=== PATIENT | male | born 1955 | race Caucasian/White ===

== ENCOUNTER 2017-11-13 05:20 | Inpatient (IN) | payer MEDICAID ==
[2017-11-13] VITALS (11 sets, daily range): BP systolic 139–154; BP diastolic 78–89; BMI 35.5
[~2017-11-13] VITALS: Ht 175.3 cm; Wt 109.1 kg
--- NOTE | ~2017-11-13 | OP ---
PATIENT NAME: SADIQ SALVADOR MEDICAL RECORD: [id number] :55 LOCATION:D.M2 D.2115 ADMISSION DATE:11/13/17 SURGEON: TREV FUENTES MD DATE OF OPERATION: 11/14/2017 PROCEDURES: 1. Stent placement, iliac, left. 2. TESTING TECH, iliac, left. 3. Aortofemoral runoff. 4. Abdominal aortography. INDICATION: Claudication and peripheral vascular disease. PROCEDURE IN DETAIL: After informed consent was informed with detailed description of risks and benefits as well as alternative therapies, the patient elected to proceed with angiogram and angioplasty. The left femoral area was prepped and draped in normal sterile fashion. Left femoral artery was cannulated via modified Seldinger technique with placement of a 6-Latvian sheath. FINDINGS: Abdominal aortography was performed. The catheter was pulled down for aortofemoral runoff. Abdominal aortography revealed no significant abdominal aortic disease. No dissection or aneurysm formation. RIGHT LEG: A. Iliac: The common internal and external iliacs have mild irregularities, but no flow-limiting stenosis. B. Femoral system: The common superficial and deep femoral have mild irregularities, but no flow-limiting stenosis. C. Popliteal and infrapopliteal vessels are widely patent with good 3-vessel runoff to the foot. LEFT LEG: A. Iliac: The common iliac has no significant stenosis. The external iliac has a 95% stenosis in the proximal aspect. B. Femoral system: The common superficial and deep femoral have mild irregularities, but no flow-limiting stenosis. C. Popliteal and infrapopliteal vessels are patent with good 3-vessel runoff to the foot. TESTING TECH AND STENT OF THE LEFT EXTERNAL ILIAC: Stent and balloon combination used was a Cordis Mihaela 7 x 18, taken to 13 atmospheres. Result was 0% residual stenosis. OVERALL IMPRESSION: Successful TESTING TECH and stent of the left external iliac, going from 95% initial stenosis to 0% residual. TRANSINT:[id number] Voice Confirmation ID: [id number] DOCUMENT ID: [id number] OPERATIVE REPORT [id number] MADELEINESADIQ Estrellita TREV FUENTES MD at 1729 CC: [id number] DICTATION DATE: 11/14/17 1134 TEACHER PRESCHOOL: 11/14/17 1215 ADM IN [place] [id number] [place] [address]
--- NOTE | ~2017-11-13 | OP ---
PATIENT NAME: SADIQ SALVADOR MEDICAL RECORD: [id number] :55 LOCATION:D.M2 D.2115 ADMISSION DATE:11/13/17 SURGEON: TREV FUENTES MD DATE OF OPERATION: 11/14/2017 PROCEDURES: 1. PTCA and stent, LAD. 2. PTCA, LAD diagonal. 3. Selective coronary angiography. INDICATION: Angina and coronary disease. PROCEDURE IN DETAIL: After informed consent was informed with detailed description of risks and benefits as well as alternative therapies, the patient elected to proceed with angiogram and angioplasty. The left femoral area had a preexisting sheath from peripheral intervention. All catheters were exchanged through this sheath. FINDINGS: The left anterior descending has 90% stenosis just after the bifurcation of the LAD and the LAD diagonal. This was addressed with a 2.5 x 18-mm [place] stent. The stent balloon was then directed to the diagonal. There was previously placed stent in the diagonal with 95% in-stent restenosis. This was ballooned with a stent balloon. Result was 0% residual throughout. OVERALL IMPRESSION: Successful PTCA and stent of LAD and diagonal, both going from 90% to 95% initial stenosis to 0% residual. TRANSINT:[id number] Voice Confirmation ID: [id number] DOCUMENT ID: [id number] TREV FUENTES MD at 1729 CC: [id number] DICTATION DATE: 11/14/17 1134 PROFILING MACHINE SET UP OPERATOR TOOL: 11/14/17 1212 ADM IN [place] [address] [place] [address]
--- NOTE | ~2017-11-13 | HEMODYNAMI ---
PATIENT:SADIQ SALVADOR MEDICAL RECORD: [id number] : 55 LOCATION:[facility] [address] [place], [place] [address]T# [id number] ADMISSION DATE: 11/13/17 Generatedon:11/14/201711:31 Patient name: SADIQ SALVADOR Patient #: [id number] SSN: : Date of study: 11/14/2017 Page: Of Hemodynamic Procedure Report Patient Data Patient Demographics Procedure consent was obtained First Name: SADIQ Gender: Male Last Name: MADELEINE : 1955 Middle Initial: Estrellita Age: 61 year(s) Patient #: [id number] Race: Unknown Additional ID: [id number] Contact details Address: [address] [place] [address] State: [place] City: [place] Zip code: [address] Admission Admission Data Admission Date: 11/13/2017 Admission Time: 11:54 Admit Source: Other Room #: .2115 Procedure Procedure Types Cath Procedure Diagnostic Procedure Sedation Charges Moderate Sedation up to 30 minutes PCI Procedure Coronary Stent Coronary Stent Initial PTCA PTCA Additional Peripheral Cath Diagnostic Procedure Administrative Services Assistant Peripheral Procedures Vvxrl-Qbdutia-Qjt-Off Peripheral vascular Intervention Stent Stent Iliac w/plasty Initial Procedure Description Procedure Date Procedure Date: 11/14/2017 Procedure Start Time: 10:59 Procedure End Time: 11:28 Procedure Staff Name Function Wilbur Garcia MD Performing Physician Ally Louis RT Monitor Natalio Miller RT Scrub Fernandez Fu RN Nurse Procedure Data Cath Procedure Fluoroscopy Diagnostic fluoroscopy Total fluoroscopy Time: 7.5 time: 7.5 min min Diagnostic fluoroscopy Total fluoroscopy dose: dose: 1418 mGy 1418 mGy Contrast Material Contrast Material Type Amount (ml) Isovue 300 180 Entry Location Entry Primary Successful Side Size Upsize Upsize Entry Closure Succes sful Closure Location (Fr) 1 (Fr) 2 (Fr) Remarks Device Remarks Femoral Left 6 Fr 6 Fr 6 Fr Exoseal artery Short Long Short Estimated blood loss: 5 ml Diagnostic catheters Device Type Used For End Catheter Placement DIAGNOSTIC 3DRC 5Fr Multi-vessel catheter ([id number]) Angiography DIAGNOSTIC Pigtail 5Fr Multi-vessel catheter ([id number]) Angiography Procedure Complications No complications Procedure Medications Medication Administration Route Dosage 0.9% NaCl I.V. 100 ml/hr Oxygen etCO2 Nasal cannula 2 l/min Heparin Flush Bag added to field 2 bags (1000units/500ml NS) Lidocaine 2% added to field 20 Versed I.V. 2 mg Fentanyl I.V. 100 mcg Versed I.V. 2 mg Fentanyl I.V. 100 mcg Heparin Bolus I.V. 4000 units Fentanyl I.V. 50 mcg Fentanyl I.V. 50 mcg Hemodynamics Rest Heart Rate: 61 (bpm) Snapshots Pre Cath Intra NCS Post Cath Vital Signs Time Heart Resp SPO2 etCO2 NIBP (mmHg) Rhythm Pain Sedation Rate (ipm) (%) (mmHg) Status Level (bpm) 10:33:47 62 18 95 32.2 128/78(110) NSR 0 (11) 10(A) , No pain 10:37:56 62 26 94 36.7 125/71(106) NSR 0 (11) 10(A) , No pain 10:42:09 60 16 92 25.5 129/76(98) NSR 0 (11) 10(A) , No pain 10:46:18 60 12 93 24.7 112/73(89) NSR 0 (11) 10(A) , No pain 10:50:22 59 24 94 30 112/72(90) NSR 0 (11) 10(A) , No pain 10:54:26 64 25 93 29.2 113/72(90) NSR 0 (11) 10(A) , No pain 10:58:31 63 20 95 33.7 119/69(87) NSR 0 (11) 10(A) , No pain 11:02:41 60 14 93 28.5 105/63(89) NSR 0 (11) 10(A) , No pain 11:06:41 61 19 92 32.2 110/74(94) NSR 0 (11) 9(A) , No pain 11:10:45 60 21 93 36 106/68(83) NSR 0 (11) 9(A) , No pain 11:14:46 62 22 92 34.5 110/68(94) NSR 0 (11) 9(A) , No pain 11:18:52 60 22 93 25.5 109/65(85) NSR 0 (11) 10(A) , No pain 11:22:56 60 13 90 41.2 113/68(89) NSR 0 (11) 10(A) , No pain 11:27:02 59 19 93 25.5 106/69(88) NSR 0 (11) 10(A) , No pain Medications Time Medication Route Dose Verified Delivered Reason Notes Effectiveness by by 10:37:04 0.9% NaCl I.V. 100 Fernandez Fernandez Per physician ml/hr Tank Fu RN RN 10:37:27 Oxygen etCO2 2 Fernandez Fernandez Per physician Nasal l/min Tank Fu cannula RN RN 10:37:59 Heparin Flush added 2 Fernandez Fernandez used for Bag to bags Tank Fu procedure (1000units/500ml RN RN NS) 10:38:19 Lidocaine 2% added 20ml Fernandez Fernandez for local to vial Lormary Fu anesthetic RN RN 11:00:22 Versed I.V. 2 mg Fernandez Fernandez for sedation Lormary Fu RN RN 11:00:30 Fentanyl I.V. 100 Fernandez Fernandez for sedation mcg Tank Fu RN RN 11:03:14 Versed I.V. 2 mg Fernandez Fernandez for sedation Tank Fu RN RN 11:03:20 Fentanyl I.V. 100 Fernandez Fernandez for sedation mcg Tank Fu RN RN 11:08:13 Heparin Bolus I.V. 4000 Fernandez Fernandez for units Tank Fu anticoagulation RN RN 11:20:35 Fentanyl I.V. 50 Fernandez Fernandez for sedation mcg Tank Fu RN RN 11:26:39 Fentanyl I.V. 50 Fernandez Fernandez for sedation mcg Tank Fu RN beck tender Log Time Note 10:07:22 Informed consent obtained and on chart 10:07:25 Admit Source: Other 10:07:40 Diagnostic Cath status Elective 10:07:41 Time tracking: Regular hours (M-F 7:00 - 5:00) 10:07:44 Plan of Care:Hemodynamics will remain stable., Cardiac rhythm will remain stable., Comfort level will be maintained., Respiratory function will remain adequate., Patient/ family verbilizes understanding of procedure., Procedure tolerated without complication., Recovers from procedure without complications.. 10:08:18 H&P Date Dictated: 11/13/2017 Within 30 days and on chart.. 10:15:31 Natalio Miller RT(R) sent for patient. Start room use. 10:32:39 Patient received from PCU to CCL 2 Alert and oriented. Tansferred to table in Supine position. 10:32:44 Warm blankets applied, and luan hugger turned on for patient comfort. 10:32:45 Correct patient and procedure confirmed by team. 10:32:45 ECG and BP/O2 sat monitors applied to patient. 10:32:46 Vital chart was started 10:36:21 Baseline sample Acquired. 10:36:24 Rhythm: sinus rhythm 10:36:26 Full Disclosure recording started 10:36:26 Pre-procedure instructions explained to patient. 10:36:27 Pre-op teaching completed and patient verbalized understanding. 10:36:28 Family in waiting room. 10:36:30 Patient NPO since Midnight. 10:36:32 Is the patient allergic to Iodine/contrast media? No. 10:36:33 Was the patient premedicated? No 10:36:34 Is patient on blood thinner?Yes 10:36:37 ACC The patient was administered the following blood thiners within the last 24 hours: ACCEffient 10:36:39 Patient diabetic? Yes. 10:36:40 If diabetic: On Metformin? No 10:36:43 Previous problem with sedation/anesthesia? No ? 10:36:44 Snore? Yes 10:36:45 Sleep apnea? No 10:36:46 Deviated septum? No 10:36:47 Opens mouth fully? Yes 10:36:48 Sticks out tongue? Yes 10:36:51 Airway obstruction? No ? 10:36:54 Dentures? No ? 10:36:57 Pre procedure: right dorsailis pedis pulse 2+ Normal; easily identifiable; not easily obliterated 10:37:00 Pre procedure: left dorsailis pedis pulse 2+ Normal; easily identifiable; not easily obliterated 10:37:04 0.9% NaCl 100 ml/hr I.V. was administered by Fernandez Fu RN; Per physician; 10:37:04 Patient pain scale 0/10 ?. 10:37:10 IV patent on arrival in right antecubital with 0.9% NaCl at [facility]. 10:37:12 Lab results completed and on chart. 10:37:17 Left groin area was prepped with chlora-prep and draped in sterile fashion 10:37:18 Alarms reviewed by R. N. 10:37:18 Sharps counted by scrub and verified by R.N. 10:37:27 Oxygen 2 l/min etCO2 Nasal cannula was administered by Fernandez Fu RN; Per physician; 10:37:59 Heparin Flush Bag (1000units/500ml NS) 2 bags added to field was administered by Fernandez Fu RN; used for procedure; 10:38:19 Lidocaine 2% 20ml vial added to field was administered by Fernandez Fu RN; for local anesthetic; 10:55:27 Physician arrived 10:55:28 --------ALL STOP TIME OUT------ 10:55:28 Final Timeout: patient, procedure, and site verified with staff and physician. All members of the team are in agreement. 10:55:30 Left groin site verified by team. 10:55:33 Physical assessment completed. ASA score P 2 - A patient with mild systemic disease as per Wilbur Garcia MD. 10:55:37 Sedation plan: IV Moderate Sedation Medication:Versed, Fentanyl 10:55:41 Use device set Radial Dx or PCI 10:55:42 ACIST Syringe (87290) opened to sterile field. 10:55:43 Medline Cath Pack ([id number]) opened to sterile field. 10:55:43 Bag Decanter () opened to sterile field. 10:55:44 DIAGNOSTIC WIRE .035 260cm J wire (066306) opened to sterile field. 10:55:44 ACIST Hand Control (64353) opened to sterile field. 10:55:45 ACIST Manifold (57152) opened to sterile field. 10:55:45 Tegaderm 4 x 4 (1626W) opened to sterile field. 10:58:30 CHOICE PT Extra Support 182cm wire ([id number]) opened to sterile field. 10:58:30 INFLATOR Merit BasixCompak (KN0932) opened to sterile field. 10:58:51 SHEATH Prelude 6Fr 0.035 (BOT-6L-89-035) opened to sterile field. 10:58:59 Procedure started. 10:59:04 Local anesthetic to left femerol artery with Lidocaine 2% by Wilbur Garcia MD.INITIAL ACCESS ONLY 10:59:14 A 6 Fr Short sheath was inserted into the Left Femoral artery 10:59:22 GUIDE 6FR XBLAD 4.0 catheter ([id number]) opened to sterile field. 11:00:22 Versed 2 mg I.V. was administered by Fernandez Fu RN; for sedation; 11:00:30 Fentanyl 100 mcg I.V. was administered by Fernandez Fu RN; for sedation; 11:02:32 A DIAGNOSTIC 3DRC 5Fr catheter (956534V) was advanced over the wire and used for Multi-vessel Angiography. 11:03:14 Versed 2 mg I.V. was administered by Fernandez Fu RN; for sedation; 11:03:20 Fentanyl 100 mcg I.V. was administered by Fernandez Fu RN; for sedation; 11:04:44 3drc used to inject contrast to visualize left iliac 11:05:15 SHEATH 6FR Brite Tip 35cm (152510W) opened to sterile field. 11:05:31 Catheter removed. 11:05:46 Sheath upsized to a 6 Fr Long. 11:06:04 CHOICE PT Extra Support J 300cm guide wire (5507079Y3) opened to sterile field. 11:08:13 Heparin Bolus 4000 units I.V. was administered by Fernandez Fu RN; for anticoagulation; 11:08:14 A DIAGNOSTIC Pigtail 5Fr catheter (456925N) was advanced over the wire and used for Multi-vessel Angiography. 11:08:48 Abdominal angiogram w/ runoff was performed. 11:09:56 Catheter removed. 11:12:00 Procedure type changed to Cath procedure, Diagnostic procedure, Sedation Charges, Moderate Sedation up to 30 minutes, PCI procedure, Coronary Stent, Coronary Stent Initial, PTCA, PTCA Additional, Peripheral Cath Diagnostic Procedure, Administrative Services Assistant Peripheral Procedures, Rxkms-Jkwhhiv-Gyj-Off, Peripheral vascular Intervention, Stent, Stent Iliac w/plasty Initial 11:12:20 Place stent Inflation Number: 1 A JENNIE 7 x 18 x 135 stent ([id number]) was prepped and advanced across the Mid Common Iliac, Left. The stent was deployed at 12 KATIE for 0:10 (min:sec). 11:12:48 Stent catheter was removed intact over wire. 11:13:42 6 Fr xblad 4 guide catheter was inserted over the wire 11:13:59 LCA angiography performed. 11:14:22 choice pt wire advanced. 11:15:27 Wire advanced across lesion. 11:16:45 Inflate balloon Inflation number: 1 A EUPHORA 2.5 x 20 Balloon ([id number]) was prepped and advanced across the Mid LAD, then inflated to 17 KATIE for 0:10 (min:sec). 11:17:17 Inflation number: 2 The EUPHORA 2.5 x 20 Balloon ([id number]) was reinflated across the Mid LAD, to 17 KATIE for 0:10 (min:sec). 11:18:26 Balloon removed over the wire. 11:19:10 Place stent Inflation Number: 3 A LIZZY RX 2.5 x 18 stent ([id number]) was prepped and advanced across the Mid LAD. The stent was deployed at 17 KATIE for 0:10 (min:sec). 11:20:35 Fentanyl 50 mcg I.V. was administered by Fernandez Fu RN; for sedation; 11:20:41 short choice pt extra support changed for long choice pt extra support wire 11:21:35 Wire redirected to diagonal. 11:23:25 Inflation number: 1 The EUPHORA 2.5 x 20 Balloon ([id number]) was reinflated across the 1st Diag, to 15 KATIE for 0:10 (min:sec). 11:23:40 Balloon removed over the wire. 11:23:41 Wire removed. 11:23:42 Guide catheter removed. 11:23:58 Sheath upsized to a 6 Fr Short. 11:24:09 EXOSEAL 6Fr (EX600) opened to sterile field. 11:24:27 Sheath removed intact; hemostasis achieved with Exoseal to the Left Femoral artery. 11:24:28 Procedure ended.(Physican Out) 11:25:49 Fluoroscopy time 07.50 minutes. 11:25:54 Flurop Dose total: 1418 11:25:54 Fluoroscopy dose: 1418 mGy 11:26:30 Contrast amount:Isovue 300 180ml. 11:26:32 Sharps counted by scrub and verified by R.N. 11:26:33 Insertion/operative site no bleeding no hematoma. 11:26:35 Post-op/insertion site Left Femoral artery dressed using a 4 x 4 and Tegaderm. 11:26:39 Fentanyl 50 mcg I.V. was administered by Fernandez Fu RN; for sedation; 11:26:39 Post left femerol artery:stable 11:26:40 Post Procedure Pulses reassessed and unchanged 11::42 Post procedure rhythm: unchanged. 11:26:45 Estimated blood loss: 5 ml 11::55 Post procedure instruction explained to patient.Patient verbalizes understanding. 11::56 Patient needs reinforcement of post procedure teaching. 11::52 Procedure and supply charges have been captured, reviewed, submitted and are correct. 11::56 Procedure Complication : No complications 11:27:58 Vital chart was stopped 11:27:59 See physician's report for complete and final results. 11:28:33 Report given to [facility]. 11:28:36 Patient transfered to [facility] with Stretcher. 11:28:38 Procedure ended. 11:28:38 Full Disclosure recording stopped 11:28:48 ACC-PCI Only Patient was given prescriptions, or instructed by Wilbur Garcia MD to start/continue the following medications upon discharge: Effient 11:28:49 End room use (Document Last) Intervention Summary Intervention Notes Time ActionType Lesion and Equipment Used Action# Pressure Duration Attributes 11:12:20 Place stent Mid Common JENNIE 7 x 18 1 12 00:10 Iliac, Left x 135 stent ([id number]) 11:16:45 Inflate Mid LAD EUPHORA 2.5 x 1 17 00:10 balloon 20 Balloon ([id number]) 11:17:17 Reinflate Mid LAD EUPHORA 2.5 x 2 17 00:10 balloon 20 Balloon ([id number]) 11:19:10 Place stent Mid LAD LIZZY RX 2.5 x 3 17 00:10 18 stent ([id number]) 11:23:25 Reinflate 1st Diag EUPHORA 2.5 x 1 15 00:10 balloon 20 Balloon ([id number]) Device Usage Item Name Manufacture Quantity Catalog Number Hospital Part Current Minimal Lot# / Charge Number Stock Stock Serial# Code ACIST Syringe Acist 1 85383 924252 432124 950050 20 (19791) [employer] Medline Cath Cardinal 1 [id number] 283727 22319 918938 5 Pack Health ([id number]) Bag Decanter Microtek 1 2001S 152226 52522 489953 5 (2001S) Medical Inc. DIAGNOSTIC WIRE [place] 1 926430 824925 590342 670021 30 .035 260cm J wire (030687) ACIST Hand Acist 1 48002 992904 333690 963091 5 Control (49944) [employer] ACIST Manifold Acist 1 85261 361841 579766 244205 5 (31217) [employer] Inc Tegaderm 4 x 4 3M 1 1626W 262845 735876 971877 5 (1626W) CHOICE PT Extra [place] 1 [id number] 327184 621350 511968 5 Support 182cm Scientific wire (6676213K8) INFLATOR Merit Merit 1 CQ5491 902919 089772 083250 15 BasVickers ElectronicsValley View Medical CenterPushPoint (XQ1862) SHEATH Prelude Merit 1 MLE-9R-98-35 283296 8135945 853071 5 6Fr 0.035 Medical (BCH-1P-37-035) GUIDE 6FR XBLAD Cardinal 1 [id number] 067344 148980 349649 3 4.0 catheter Health (82502944) DIAGNOSTIC 3DRC Cardinal 1 [id number] 991639 267802 482592 9 5Fr catheter Health (701592T) SHEATH 6FR Cardinal 1 271449M 826218 921704 129076 1 Brite Tip 35cm Health (238697H) CHOICE PT Extra [place] 1 [id number] 086078 196160 473001 5 Support J 300cm Scientific guide wire (3115623X2) DIAGNOSTIC Cardinal 1 [id number] 091871 250048 975308 5 Pigtail 5Fr Health catheter (861134M) JENNIE 7 x 18 Cardinal 1 [id number] 761833 804319 5 [id number] x 135 stent Health ([id number]) EUPHORA 2.5 x Medtronic 1 [id number] 971521 621334 464220 5 [id number] 20 Balloon ([id number]) LIZZY RX 2.5 x Medtronic 1 [id number] 729202 4929728 811352 5 [id number] 18 stent ([id number]) EXOSEAL 6Fr Cardinal 1 EX600 371544 866954 212239 10 (EX600) Health Signature Audit [place] Stage Time Signature Unsigned Intra-Procedure 11/14/2017 Ally Louis 11:31:10 AM RT(R) Signatures Monitor : Ally Louis RT Signature : Date : Time : [place] [address] [facility] [place] [address]
--- NOTE | ~2017-11-13 | DS ---
PATIENT:SADIQ SALVADOR :55 MEDICAL RECORD: [id number] DISCHARGE SUMMARY ADMISSION DATE: 11/13/17 DISCHARGE DATE: 11/15/17 DISCHARGE DIAGNOSES: 1. Acute myocardial infarction. 2. Coronary artery disease. 3. PTCA and stent of the left circumflex and LAD this admission. 4. Hypertension. 5. Hyperlipidemia. 6. Paroxysmal atrial fibrillation. HOSPITAL COURSE: Mr. Salvador presents with an acute myocardial infarction. Underwent PTCA and stent of the left circumflex. He had concomitant disease of the LAD and RCA. Underwent successful PTCA and stent of the LAD as well this admission. He had an episode of atrial fibrillation. His atenolol that was a home med was discontinued and changed to sotalol 80 mg b.i.d. He had no further atrial fibrillation. He was continued on his Procardia and losartan as well as his statin. He is discharged home. He will follow up in 1 week for PTCA and stent of the RCA. TRANSINT:[id number] Voice Confirmation ID: [id number] DOCUMENT ID: [id number] TREV FUENTES MD at 1722 CC: [id number] DICTATION DATE: 11/15/17 1113 BENZENE WASHER: 11/15/17 1121 DIS IN 11/15/17 [place] [id number] [place] [address]
--- NOTE | ~2017-11-13 | HEMODYNAMI ---
PATIENT:SADIQ SALVADOR MEDICAL RECORD: [id number] : 55 [id number] ADMISSION DATE: 11/13/17 Generatedon:11/13/201710:15 Patient name: SADIQ SALVADOR Patient #: [id number] SSN: : Date of study: 11/13/2017 Page: Of Hemodynamic Procedure Report Patient Data Patient Demographics Procedure consent was obtained First Name: SADIQ Gender: Male Last Name: MADELEINE : 1955 Middle Initial: G Age: 61 year(s) Patient #: [id number] Race: Unknown Additional ID: [id number] Contact details [address]: [address] [place] [address] State: [place] City: [place] Zip code: [address] Admission Admission Data Admission Date: 11/13/2017 Admission Time: 7:23 Room #: [facility] Procedure Procedure Types Cath Procedure Diagnostic Procedure LHC LH w/Coronaries Sedation Charges Moderate Sedation up to 30 minutes PCI Procedure Coronary Stent Coronary Stent Initial Coronary Stent Additional Procedure Description Procedure Date Procedure Date: 11/13/2017 Procedure Start Time: 9:35 Procedure End Time: 10:08 Procedure Staff Name Function Carson Orozco MD Performing Physician Alexander Quiñonez RN Nurse Paulino Irvin RT Field Care Advocate Ally Louis RT Monitor Jyoti Munoz RT Scrub Procedure Data Cath Procedure Fluoroscopy Diagnostic fluoroscopy Total fluoroscopy Time: 9.1 time: 9.1 min min Diagnostic fluoroscopy Total fluoroscopy dose: dose: 2083 mGy 2083 mGy Contrast Material Contrast Material Type Amount (ml) Isovue 300 140 Entry Location Entry Primary Successful Side Size Upsize Upsize Entry Closure Succes sful Closure Location (Fr) 1 (Fr) 2 (Fr) Remarks Device Remarks Femoral Right 5 Fr 6 Fr Exoseal artery Short Estimated blood loss: 5 ml Diagnostic catheters Device Type Used For End Catheter Placement MULTIPACK JL 4.0 5Fr Left Coronary catheter Angiography MULTIPACK 3DRC 5Fr Right Coronary catheter Angiography MULTIPACK Pigtail 5 Fr LV Angiography catheter Procedure Complications No complications Procedure Medications Medication Administration Route Dosage Oxygen etCO2 Nasal cannula 2 l/min Heparin Flush Bag added to field 2 bags (1000units/500ml NS) 0.9% NaCl I.V. 100 ml/hr Fentanyl I.V. 50 mcg Versed I.V. 1 mg Fentanyl I.V. 50 mcg Versed I.V. 1 mg Fentanyl I.V. 50 mcg Integrilin (Bolus I.V. 9.5 ml 2mg/ml) Heparin Bolus I.V. 52226 units Fentanyl I.V. 50 mcg Effient P.O. 60 mg Hemodynamics Rest Heart Rate: 87 (bpm) Pressure Samples Time Site Value (mmHg) Purpose Heart Use Rate(bpm) 9:44 LV 123/5,28 Snapshot 81 9:45 AO 124/61(89) Pullback 87 9:45 LV 130/4,23 Pullback 87 Gradients Valve Time Site 1 Site 2 Mean SEP/DFP Peak To Heart Use (mmHg) (sec/min) Peak Rate (mmHg) (bpm) Aortic 9:45 LV AO 16 17 6 87 130/4,23 124/61(89) Calculations Valve P-P Mean Valve Index Valve Source Name Gradient Area Flow (cm2) Aortic 6 16 6 16 Snapshots Pre Cath Intra NCS Post Cath Vital Signs Time Heart Resp SPO2 etCO2 NIBP (mmHg) Rhythm Pain Sedation Rate (ipm) (%) (mmHg) Status Level (bpm) 9:26:15 84 16 90 30.7 152/86(111) NSR 0 (11) 10(A) , No pain 9:30:29 85 17 93 32.2 138/89(116) NSR 0 (11) 10(A) , No pain 9:34:39 84 21 94 37.4 136/87(115) NSR 0 (11) 10(A) , No pain 9:38:47 81 17 92 31.4 136/85(113) NSR 0 (11) 9(A) , No pain 9:42:55 82 17 91 29.2 130/85(115) NSR 0 (11) 9(A) , No pain 9:47:03 81 18 93 36.7 131/80(101) NSR 0 (11) 9(A) , No pain 9:51:13 77 17 92 38.2 129/75(105) NSR 0 (11) 9(A) , No pain 9:55:23 82 17 92 41.2 130/76(103) NSR 0 (11) 9(A) , No pain 9:59:30 81 17 92 39 134/83(104) NSR 0 (11) 9(A) , No pain 10:03:40 77 18 91 38.2 126/80(105) NSR 0 (11) 9(A) , No pain 10:07:46 86 17 92 33.7 136/89(110) NSR 0 (11) 10(A) , No pain Medications Time Medication Route Dose Verified Delivered Reason Notes Effectiveness by by 9:27:55 Oxygen etCO2 2 Carson Alexander Per physician Nasal l/min Ernesto Quiñonez RN cannula 9:28:01 Heparin Flush added 2 Carson Alexander used for Bag to bags Ernesto Quiñonez RN procedure (1000units/500ml field NS) 9:28:11 0.9% NaCl I.V. 100 Carson Alexander Per physician ml/hr Ernesto Quiñonez RN 9:33:34 Fentanyl I.V. 50 Carson Alexander for sedation mcg Ernesto Quiñonez RN 9:33:41 Versed I.V. 1 mg Carson Alexander for sedation Ernesto Quiñonez RN 9:36:20 Fentanyl I.V. 50 Carson Alexander for sedation mcg Ernesto Quiñonez RN 9:36:22 Versed I.V. 1 mg Carson Alexander for sedation Ernesto Quiñonez RN 9:47:55 Heparin Bolus I.V. 01476 Carson Alexander for units Ernesto Quiñonez RN anticoagulation 10:02:24 Fentanyl I.V. 50 Carson Alexander for sedation mcg Ernesto Quiñonez RN 10:05:24 Fentanyl I.V. 50 Carson Alexander for sedation mcg Ernesto Quiñonez RN 10:05:38 Integrilin I.V. 9.5 Carson Alexander for (Bolus 2mg/ml) ml Ernesto Quiñonez RN antiplatelet therapy 10:12:51 Effient P.O. 60 mg Carson Alexander for Ernesto Quiñonez RN antiplatelet therapy Procedure Log Time Note 8:48:50 Diagnostic Cath Status : Elective 9:10:57 Paulino Irvin RT(R) sent for patient. Start room use. 9:10:58 Time tracking: Regular hours (M-F 7:00 - 5:00) 9:11:02 Plan of Care:Hemodynamics will remain stable., Cardiac rhythm will remain stable., Comfort level will be maintained., Respiratory function will remain adequate., Patient/ family verbilizes understanding of procedure., Procedure tolerated without complication., Recovers from procedure without complications.. 9:25:00 Patient received from ED to CCL 2 Alert and oriented. Tansferred to table in Supine position. 9:25:03 Warm blankets applied, and luan hugger turned on for patient comfort. 9:25:04 Correct patient and procedure confirmed by team. 9:25:05 Signed procedure consent form obtained from patient. 9:25:06 ECG and BP/O2 sat monitors applied to patient. 9:25:07 Vital chart was started 9:25:09 Baseline sample Acquired. 9:25:14 Rhythm: sinus rhythm , paced 9:25:15 Full Disclosure recording started 9:25:20 H&P Date Dictated: 11/13/2017 New H&P dictated by physician.. 9:25:38 Pre-procedure instructions explained to patient. 9:25:39 Pre-op teaching completed and patient verbalized understanding. 9:25:40 Family in waiting room. 9:25:42 Patient NPO since Midnight. 9:25:44 Is the patient allergic to Iodine/contrast media? No. 9:25:45 Was the patient premedicated? No 9:25:47 Is patient on blood thinner?No 9:26:00 Patient diabetic? Yes. 9:27:55 Oxygen 2 l/min etCO2 Nasal cannula was administered by Alexander Quiñonez RN; Per physician; 9:28:01 Heparin Flush Bag (1000units/500ml NS) 2 bags added to field was administered by Alexander Quiñonez RN; used for procedure; 9:28:11 0.9% NaCl 100 ml/hr I.V. was administered by Alexander Quiñonez RN; Per physician; 9:29:28 If diabetic: On Metformin? No 9:29:32 Previous problem with sedation/anesthesia? No ? 9:29:33 Snore? Yes 9:29:34 Sleep apnea? No 9:29:43 Deviated septum? No 9:29:44 Opens mouth fully? Yes 9:29:44 Sticks out tongue? Yes 9:29:56 Airway obstruction? Yes possible copd 9:30:00 Dentures? No ? 9:30:06 Pre procedure: right dorsailis pedis pulse 1+ Palpable, but thready & weak; easily obliterated 9:30:08 Pre procedure: left dorsailis pedis pulse 1+ Palpable, but thready & weak; easily obliterated 9:30:10 Patient pain scale 0/10 ?. 9:30:27 IV patent on arrival in right antecubital with 0.9% NaCl at [facility]. 9:30:30 Lab results completed and on chart. 9:30:35 Right groin area was prepped with chlora-prep and draped in sterile fashion 9:30:36 Alarms reviewed by R. N. 9:30:37 Sharps counted by scrub and verified by R.N. 9:32:43 Physician arrived 9:32:44 --------ALL STOP TIME OUT------ 9:32:44 Final Timeout: patient, procedure, and site verified with staff and physician. All members of the team are in agreement. 9:32:46 Right groin site verified by team. 9:32:51 Physical assessment completed. ASA score P 2 - A patient with mild systemic disease as per Carson Orozco MD. 9:32:55 Sedation plan: IV Moderate Sedation Medication:Versed, Fentanyl 9:33:11 Use device set Femoral Dx 9:33:12 ACIST Syringe (36896) opened to sterile field. 9:33:13 Bag Decanter () opened to sterile field. 9:33:13 Medline Cath Pack ([id number]) opened to sterile field. 9:33:14 DIAGNOSTIC WIRE .035 260cm J wire (756755) opened to sterile field. 9:33:15 ACIST Hand Control (38049) opened to sterile field. 9:33:15 ACIST Manifold (15786) opened to sterile field. 9:33:16 DIAGNOSTIC Multipack 5Fr catheter set (WT8456) opened to sterile field. 9:33:16 Tegaderm 4 x 4 (1626W) opened to sterile field. 9:33:18 SHEATH Prelude 5Fr 0.035 (LAS-1I-53-035) opened to sterile field. 9:33:34 Fentanyl 50 mcg I.V. was administered by Alexander Quiñonez RN; for sedation; 9:33:41 Versed 1 mg I.V. was administered by Alexander Quiñonez RN; for sedation; 9:35:39 Procedure started. 9:35:42 Local anesthetic to right femoral artery with Lidocaine 2% by Carson Orozco MD.INITIAL ACCESS ONLY 9:36:20 Fentanyl 50 mcg I.V. was administered by Alexander Quiñonez RN; for sedation; 9:36:22 Versed 1 mg I.V. was administered by Alexander Quiñonez RN; for sedation; 9:37:23 A 5 Fr sheath was inserted into the Right Femoral artery 9:38:10 A MULTIPACK JL 4.0 5Fr catheter was advanced over the wire and used for Left Coronary Angiography. 9:39:12 LCA angiography performed. 9:39:15 Injector settings: Ml/sec: 3, Volume: 6, 9:39:44 Catheter removed. 9:40:06 A MULTIPACK 3DRC 5Fr catheter was advanced over the wire and used for Right Coronary Angiography. 9:41:45 RCA angiography performed. 9:41:48 Injector settings: Ml/sec: 3, Volume: 6, 9:42:48 Catheter removed. 9:42:54 A MULTIPACK Pigtail 5 Fr catheter was advanced over the wire and used for LV Angiography. 9:44:34 LV hemodynamics recorded. 9:44:35 LV gram done using WOLF 9:44:37 Injector settings: Ml/sec: 5, Volume: 15, 9:44:46 EF : 40 % 9:45:17 Catheter removed. 9:45:18 Proceeding to intervention. 9:45:46 SHEATH 6Fr Prelude Radial ([id number]) opened to sterile field. 9:45:47 INFLATOR Merit BasixCompak (QS7795) opened to sterile field. 9:45:47 LUGE Straight 300cm 0.014 guide wire ([id number]) opened to sterile field. 9:45:48 TUBING High Pressure Extension Tubing (Ernesto) (MG9997B) opened to sterile field. 9:46:12 Sheath upsized to a 6 Fr Short. 9:47:30 GUIDE 6FR XBLAD 3.5 catheter ([id number]) opened to sterile field. 9:47:42 6 Fr xblad 3.5 guide catheter was inserted over the wire 9:47:52 luge wire advanced. 9:47:55 Heparin Bolus 87657 units I.V. was administered by Alexander Quiñonez RN; for anticoagulation; 9:51:40 Wire advanced across lesion. 9:53:15 Inflate balloon Inflation number: 1 A EUPHORA 2.0 x 20 Balloon ([id number]) was prepped and advanced across the 1st Ob Pavithra, then inflated to 10 KATIE for 0:10 (min:sec). 9:54:13 Inflation number: 2 The EUPHORA 2.0 x 20 Balloon ([id number]) was reinflated across the 1st Ob Pavithra, to 14 KATIE for 0:10 (min:sec). 9:55:46 Balloon removed over the wire. 9:58:53 Place stent Inflation Number: 3 A LIZZY RX 3.0 x 30 stent ([id number]) was prepped and advanced across the 1st Ob Pavithra. The stent was deployed at 12 KATIE for 0:10 (min:sec). 9:59:40 Inflation number: 4 The stent balloon was then re-inflated across the 1st Ob Pavithra to 10 KATIE for 0:10 (min:sec). 10:01:18 Balloon removed over the wire. 10:02:24 Fentanyl 50 mcg I.V. was administered by Alexander Quiñonez RN; for sedation; 10:03:23 Place stent Inflation Number: 1 A LIZZY RX 3.0 x 30 stent ([id number]) was prepped and advanced across the Prox CX. The stent was deployed at 13 KATIE for 0:10 (min:sec). 10:05:10 Inflation number: 5 The stent balloon was then re-inflated across the 1st Ob Pavithra to 13 KATIE for 0:10 (min:sec). 10:05:24 Fentanyl 50 mcg I.V. was administered by Alexander Quiñonez RN; for sedation; 10:05:37 Stent catheter was removed intact over wire. 10:05:38 Integrilin (Bolus 2mg/ml) 9.5 ml I.V. was administered by Alexander Quiñonez RN; for antiplatelet therapy; 10:05:58 Wire removed. 10:05:59 Guide catheter removed. 10:06:06 EXOSEAL 6Fr (EX600) opened to sterile field. 10:06:18 Sheath removed intact; hemostasis achieved with Exoseal to the Right Femoral artery. 10:06:20 Procedure ended.(Physican Out) 10:06:29 Fluoroscopy time 09.10 minutes. 10:06:46 Fluoroscopy dose: 3 mGy 10:06:46 Flurop Dose total: 2082 10:06:50 Contrast amount:Isovue 300 140ml. 10:06:52 Sharps counted by scrub and verified by R.N. 10:06:53 Insertion/operative site no bleeding no hematoma. 10:07:24 Post-op/insertion site Right Femoral artery dressed using a 4 x 4 and Tegaderm. 10:07:27 Post procedure rhythm: unchanged. 10:07:30 Estimated blood loss: 5 ml 10:07:31 Post procedure instruction explained to patient.Patient verbalizes understanding. 10:07:32 Patient needs reinforcement of post procedure teaching. 10:07:54 Procedure type changed to Cath procedure, Diagnostic procedure, LHC, LHC w/Coronaries, Sedation Charges, Moderate Sedation up to 30 minutes, PCI procedure, Coronary Stent, Coronary Stent Initial, Coronary Stent Additional 10:07:55 Procedure and supply charges have been captured, reviewed, submitted and are correct. 10:07:59 Procedure Complication : No complications 10:08:01 Vital chart was stopped 10:08:02 See physician's report for complete and final results. 10:08:23 Report given to [facility]. 10:08:26 Patient transfered to [facility] with Stretcher. 10:08:28 Procedure ended. 10:08:28 Full Disclosure recording stopped 10:08:42 ACC-PCI Only Patient was given prescriptions, or instructed by Carson Orozco MD to start/continue the following medications upon discharge: Effient 10:08:44 End room use (Document Last) 10:12:51 Effient 60 mg P.O. was administered by Alexander Quiñonez RN; for antiplatelet therapy; Intervention Summary Intervention Notes Time ActionType Lesion and Equipment Used Action# Pressure Duration Attributes 9:53:15 Inflate 1st Ob Pavithra EUPHORA 2.0 x 1 10 00:10 balloon 20 Balloon ([id number]) 9:54:13 Reinflate 1st Ob Pavithra EUPHORA 2.0 x 2 14 00:10 balloon 20 Balloon ([id number]) 9:58:53 Place stent 1st Ob Pavithra LIZZY RX 3.0 x 3 12 00:10 30 stent ([id number]) 9:59:40 Reinflate 1st Ob Pavithra LIZZY RX 3.0 x 4 10 00:10 stent 30 stent balloon ([id number]) 10:03:23 Place stent Prox CX LIZZY RX 3.0 x 1 13 00:10 30 stent ([id number]) 10:05:10 Reinflate 1st Ob Pavithra LIZZY RX 3.0 x 5 13 00:10 stent 30 stent balloon ([id number]) Device Usage Item Name Manufacture Quantity Catalog Number Hospital Part Current Minimal Lot# / Charge Number Stock Stock Serial# Code ACIST Syringe Acist 1 63664 139203 629248 234290 20 (52286) [employer] Bag Decanter Microtek 1 272082 01519 526857 5 () Medical Inc. Medline Cath Cardinal 1 [id number] 627062 41772 282416 5 Spine Pain Management ([id number]) DIAGNOSTIC WIRE [place] 1 414740 820890 747751 043488 30 .035 260cm J wire (786276) ACIST Hand Acist 1 41937 351593 877581 728948 5 Control (10716) [employer] Inc ACIST Manifold Acist 1 52411 060131 205665 980816 5 (95816) [employer] Inc DIAGNOSTIC Cardinal 1 AH2385 983687 85981 420266 30 Multipack 5Fr Health catheter set (UU4591) Tegaderm 4 x 4 3M 1 1626W 809086 000895 272079 5 (1626W) SHEATH Prelude Merit 1 IES-0U-58-035 695961 834044 378678 5 5Fr 0.035 Medical (SNG-2L-88-035) MULTIPACK JL Cardinal 1 084417 5 4.0 5Fr Health catheter MULTIPACK 3DRC Cardinal 1 076946 5 5Fr catheter Health MULTIPACK Cardinal 1 133796 5 Pigtail 5 Fr Health catheter SHEATH 6Fr Merit 1 [id number] 491482 840882 458273 5 Prelude Radial Medical ([id number]) INFLATOR Merit Merit 1 QD4928 601981 220305 947255 15 SignpostwaPowerlytics (XL3335) LUGE Straight Ravia 1 [id number] 018506 676495 161288 5 300cm 0.014 Scientific guide wire (76909210) TUBING High Merit 1 [id number] 187522 29487 707523 10 Pressure Medical Extension Tubing (Orozco) (AV2684I) GUIDE 6FR XBLAD Cardinal 1 68884125 964455 051655 123709 10 3.5 catheter Health (40466283) EUPHORA 2.0 x Medtronic 1 [id number] 824018 570424 757817 5 [id number] 20 Balloon (THR4793T) LIZZY RX 3.0 x Medtronic 2 [id number] 278939 6369361 951584 5 [id number] 30 stent [id number] ([id number]) EXOSEAL 6Fr Cardinal 1 EX600 666875 275686 989210 10 (EX600) Health Signature Audit [place] Stage Time Signature Unsigned Intra-Procedure 11/13/2017 Ally Louis 10:14:56 AM RT(R) Signatures Monitor : Ally Louis RT Signature : Date : Time : [address] [address]
[2017-11-13] MEDS ORDERED: PRAVACHOL40 MG PO (05:27)
[2017-11-13] MEDS ORDERED: COZAAR100 MG PO (05:28)
[2017-11-13] MEDS ORDERED: HCTZ25 MG PO (05:28)
[2017-11-13] MEDS ORDERED: ADALAT CC90 MG PO (05:28)
[2017-11-13] MEDS ORDERED: XANAX1 MG PO (05:29)
[2017-11-13] MEDS ORDERED: ASPIRIN325 MG PO (05:29)
[2017-11-13] MEDS ORDERED: TENORMIN50 MG PO (05:29)
[2017-11-13] MEDS ORDERED: CATAPRES0.1 MG (05:30)
[2017-11-13] MEDS ORDERED: GLUCOTROL 5 MG T5 MG (05:30)
[2017-11-13] MEDS ORDERED: FAMOTIDINE10 MG (05:30)
[2017-11-13] MEDS ORDERED: NORCO 7.5/325 T1 TA1 PO (05:31)
[2017-11-13 06:45] LABS: AMYLASE - SERUM 23 U/L (25-115); CKMB 26.3 U/L (0.0-3.6); CREATINE KINASE 271 UL (21-232); LIPASE 102 U/L (73-393)
[2017-11-13 06:49] LABS: TROPONIN-I 2.417 ng/mL (0.000-0.060)
[2017-11-13 08:11] LABS: BASOPHILS 0.2 % (0-2); EOSINOPHILS 0.2 % (0-7); HEMATOCRIT 55.8 % (42.0-54.0); HEMOGLOBIN 19.6 g/dL (13.5-17.5); IMMATURE GRANULOCYTES 0.2 % (0-5); LYMPHOCYTES 16.5 % (15-50); MCH 31.4 pg (26.0-34.0); MCHC 35.1 g/dL (31.0-37.0); MCV 89.3 fL (80.0-100.0); MEAN PLATELET VOLUME 11.4 fL (7.4-10.4); MONOCYTES 9.1 % (2-11); NEUTROPHILS 73.8 % (40-80); PLATELET COUNT 192 10x3/uL (130-400); RBC 6.25 10x6/uL (4.20-6.10); RDW 13.4 % (11.5-14.5); WBC 11.4 10x3/uL (4.8-10.8)
[2017-11-13 08:13] LABS: CARBON DIOXIDE 31.5 mmol/L (21.0-32.0); CREATININE - SERUM 1.1 mg/dL (0.6-1.3); POTASSIUM - SERUM 3.5 mmol/L (3.5-5.1)
[2017-11-14 00:03] VITALS: BP 144/80
[2017-11-14 06:07] VITALS: BP 140/82
[2017-11-14 06:24] LABS: BASOPHILS 0.2 % (0-2); EOSINOPHILS 0.6 % (0-7); HEMATOCRIT 58.8 % (42.0-54.0); HEMOGLOBIN 20.3 g/dL (13.5-17.5); IMMATURE GRANULOCYTES 0.2 % (0-5); MCH 31.2 pg (26.0-34.0); MCHC 34.5 g/dL (31.0-37.0); MCV 90.5 fL (80.0-100.0); MEAN PLATELET VOLUME 10.9 fL (7.4-10.4); MONOCYTES 12.3 % (2-11); NEUTROPHILS 66.7 % (40-80); PLATELET COUNT 179 10x3/uL (130-400); RDW 13.7 % (11.5-14.5); WBC 12.5 10x3/uL (4.8-10.8)
[2017-11-14 06:45] LABS: ALBUMIN 3.7 g/dL (3.4-5.0); ALKALINE PHOSPHATASE 69 U/L (46-116); ALT (SGPT) 42 U/L (10-68); CALC OSMOLALITY 286 mosm/kg (275-300); CALCIUM 9.2 mg/dL (8.5-10.1); CHLORIDE - SERUM 102 mmol/L (98-107); CREATININE - SERUM 0.9 mg/dL (0.6-1.3); GLUCOSE 133 mg/dL (74-106); POTASSIUM - SERUM 3.5 mmol/L (3.5-5.1); PROTEIN - SERUM 7.5 g/dL (6.4-8.2); SODIUM 143 mmol/L (136-145); UREA NITROGEN 13 mg/dL (7-18); eGFR NON AFRICAN AMERICAN > 90 mL/min (90-120)
[2017-11-14 08:26] VITALS: BP 120/84
[2017-11-14 15:59] VITALS: BP 118/68
[2017-11-14 19:49] VITALS: Ht 175.3 cm; Wt 109.1 kg
[2017-11-14 20:00] VITALS: BP 138/72
[2017-11-15] VITALS: BP 117/55; BP 93/44
[2017-11-15 04:00] VITALS: BP 149/83
[2017-11-15 06:08] LABS: BASOPHILS 0.2 % (0-2); EOSINOPHILS 0.7 % (0-7); HEMATOCRIT 52.2 % (42.0-54.0); HEMOGLOBIN 17.5 g/dL (13.5-17.5); IMMATURE GRANULOCYTES 0.3 % (0-5); LYMPHOCYTES 15.2 % (15-50); MCH 30.3 pg (26.0-34.0); MCHC 33.5 g/dL (31.0-37.0); MCV 90.5 fL (80.0-100.0); MEAN PLATELET VOLUME 11.1 fL (7.4-10.4); MONOCYTES 12.8 % (2-11); NEUTROPHILS 70.8 % (40-80); PLATELET COUNT 166 10x3/uL (130-400); RBC 5.77 10x6/uL (4.20-6.10); RDW 13.6 % (11.5-14.5); WBC 10.9 10x3/uL (4.8-10.8)
[2017-11-15 06:35] LABS: % SATURATION 23 % (15-55); IRON 53 ug/dl (35-150); TOTAL IRON BIND CAPACITY 221 ug/dl (260-445); UNSAT IRON BIND CAPACITY 168 ug/dl (150-375)
[2017-11-15 06:51] LABS: ALBUMIN 3.1 g/dL (3.4-5.0); ALKALINE PHOSPHATASE 54 U/L (46-116); BILIRUBIN - TOTAL 1.13 mg/dL (0.2-1.3); CALC OSMOLALITY 287 mosm/kg (275-300); CALCIUM 8.5 mg/dL (8.5-10.1); CARBON DIOXIDE 29.7 mmol/L (21.0-32.0); CHLORIDE - SERUM 105 mmol/L (98-107); CREATININE - SERUM 0.9 mg/dL (0.6-1.3); FERRITIN 344 ng/mL (3-244); GLUCOSE 133 mg/dL (74-106); POTASSIUM - SERUM 3.5 mmol/L (3.5-5.1); PROTEIN - SERUM 6.7 g/dL (6.4-8.2); SODIUM 143 mmol/L (136-145); UREA NITROGEN 15 mg/dL (7-18); eGFR NON AFRICAN AMERICAN > 90 mL/min (90-120)
[2017-11-15 06:52] LABS: ALT (SGPT) 30 U/L (10-68)
[2017-11-15 07:44] VITALS: BP 147/92
[2017-11-15 10:58] VITALS: BP 164/98
[2017-11-15] MEDS ORDERED: GLIMEPIRIDE4 MG PO (11:14)
[2017-11-15] MEDS ORDERED: EFFIENT10 MG PO (11:19)
[2017-11-15] MEDS ORDERED: BETAPACE 80 MG80 MG PO (11:20)
[2017-11-16 10:24] LABS: ERYTHROPOIETIN 12.7 mIU/mL (2.6-18.5)
== END 2017-11-15 12:39 | disposition home or self-care (01) | DRG 246 ==
LOC: D.ER 05:20 → OBSVTIME 07:23 → D.EDHOLD 07:23 → D.M2 07:23 → D.EDHOLD 07:23 → D.CLR 09:37 → D.M2 10:16 → D.SDCHOLD 16:50 → D.M2 16:53
PROVIDERS: Family Medicine; Internal Medicine Cardiovascular Disease; Internal Medicine Hematology & Oncology
PROC: 027035Z Dilation of Coronary Artery, One Artery with Two Drug-eluting Intraluminal Devices, Percutaneous Approach (ICD-10-PCS; principal; 2017-11-13 10:45)
PROC: 02703DZ Dilation of Coronary Artery, One Artery with Intraluminal Device, Percutaneous Approach (ICD-10-PCS; 2017-11-14)
PROC: 047D3D6 (ICD-10-PCS; 2017-11-14)
PROC: 4A023N7 Measurement of Cardiac Sampling and Pressure, Left Heart, Percutaneous Approach (ICD-10-PCS; 2017-11-14)
PROC: B2151ZZ Fluoroscopy of Left Heart using Low Osmolar Contrast (ICD-10-PCS; 2017-11-14)
PROC: B2111ZZ Fluoroscopy of Multiple Coronary Arteries using Low Osmolar Contrast (ICD-10-PCS; 2017-11-14)
PROC: 027034Z Dilation of Coronary Artery, One Artery with Drug-eluting Intraluminal Device, Percutaneous Approach (ICD-10-PCS; 2017-11-14 09:00)
DX: I25.119 Atherosclerotic heart disease of native coronary artery with unspecified angina pectoris (principal); I21.9 Acute myocardial infarction, unspecified; T82.855A Stenosis of coronary artery stent, initial encounter; Z95.1 Presence of aortocoronary bypass graft; Y83.8 Other surgical procedures as the cause of abnormal reaction of the patient, or of later complication, without mention of misadventure at the time of the procedure; I10 Essential (primary) hypertension; R78.5 Finding of other psychotropic drug in blood; I48.0 Paroxysmal atrial fibrillation; J44.9 Chronic obstructive pulmonary disease, unspecified; D75.1 Secondary polycythemia; I70.212 Atherosclerosis of native arteries of extremities with intermittent claudication, left leg; E66.9 Obesity, unspecified; Z68.35 Body mass index [BMI] 35.0-35.9, adult

== ENCOUNTER 2017-11-20 08:45 | Outpatient (CLI) | payer MEDICAID ==
[~2017-11-20] VITALS: Ht 175.3 cm; Wt 109.1 kg
--- NOTE | ~2017-11-20 | OP ---
PATIENT NAME: SADIQ SALVADOR MEDICAL RECORD: [id number] :55 LOCATION:D.CAT ADMISSION DATE: SURGEON: TREV FUENTES MD DATE OF OPERATION: 11/20/2017 PROCEDURES: 1. PTCA stent RCA. 2. Laser atherectomy RCA. 3. Selective coronary angiography. INDICATION: Angina and coronary artery disease. PROCEDURE IN DETAIL: After informed consent was obtained and after a detailed description of risks, benefits as well as alternative therapies, the patient elected to proceed with angiogram and angioplasty. The right femoral area was prepped and draped in normal sterile fashion. Right femoral artery was cannulated via modified Seldinger technique with placement of 6-Colombian sheath. All catheters exchanged through this sheath. FINDINGS: The right coronary artery has 85% stenosis in the mid vessel followed by an in-stent restenosis at 80+ percent in the mid vessel as well. The in-stent restenosis was addressed with laser atherectomy with a 1.4 mm catheter going at 60-40. Multiple passes were made. The de chelsie lesion was stented with a 3.5 x 18 mm [place] stent. Result was 0% residual stenosis. OVERALL IMPRESSION: Successful percutaneous transluminal coronary angioplasty stent, laser atherectomy of the right coronary artery going from 85% initial stenosis to 0% residual. TRANSINT:[id number] Voice Confirmation ID: [id number] DOCUMENT ID: [id number] TREV FUENTES MD at 1823 CC: [id number] DICTATION DATE: 11/20/17 1033 SPECIAL EQUIPMENT TECHNICIAN: 11/20/17 1042 DEP CLI 11/20/17 [place] [id number]
--- NOTE | ~2017-11-20 | HP ---
PATIENT: SADIQ SALVADOR MEDICAL RECORD: [id number] ACCOUNT: [id number] LOCATION:[facility] : 55 ADMISSION DATE: 11/20/17 PCP: ERASTO LEIVA HISTORY AND PHYSICAL EXAMINATION DIAGNOSES: 1. Angina. 2. Coronary artery disease. 3. Recent percutaneous transluminal coronary angioplasty stent of left anterior descending and circumflex with concomitant disease of right coronary artery. 4. Hypertension. 5. Hyperlipidemia. HISTORY OF PRESENT ILLNESS: Mr. Salvador presents with anginal symptomatology, found to have significant disease of the RCA, LAD and circumflex, underwent successful PTCA stent of the left circumflex and LAD, he is now brought back for PTCA stent of the RCA. PHYSICAL EXAMINATION: GENERAL APPEARANCE: Well-nourished, well-developed, appears stated age. Level of distress, comfortable. PSYCHIATRIC: Mental status, alert, normal affect. Orientation, oriented to time, place and person. EYES: Lids and conjunctiva, noninjected. No discharge, no pallor. ENT: Lips, teeth, gums, normal dentition. Oropharynx, no cyanosis, no pallor. NECK: Carotid arteries, bilateral normal upstroke, no bruits, no thrills. JUGULAR VEINS: No jugular venous pressure or distention. CERVICAL LYMPH NODES: Nontender, nonenlarged. THYROID: Not enlarged. Nontender. No nodules. LUNGS: Respiratory effort, unlabored. CHEST: Normal curvature. No thoracic deformity. No chest wall tenderness. Percussion, resonant. Auscultation, clear. No wheezes, no rales, no rhonchi. CARDIOVASCULAR: Precordial exam, nondisplaced. No heaves or pericardial thrills. Rate and rhythm, regular. Heart sounds, normal S1, normal S2. No S3, no gallop, no rub. Systolic murmur, not heard. Diastolic murmur, not heard. EXTREMITIES: No cyanosis, no edema. Peripheral pulses, full and equal in all extremities, except as noted. No bruits appreciated. ABDOMEN: Soft, nondistended. Normal aorta. No bruit. Nontender. No masses. Liver, nontender, no hepatomegaly. Spleen, nontender, no splenomegaly. MUSCULOSKELETAL: No joint tenderness. No joint swelling. No erythema. NEUROLOGICAL: Normal gait, normal strength, normal tone. SKIN: Warm and dry. OVERALL IMPRESSION: Anginal symptomatology with significant disease of the right coronary artery. We will proceed with percutaneous transluminal coronary angioplasty stent of the right coronary artery. TRANSINT:[id number] Voice Confirmation ID: [id number] DOCUMENT ID: [id number] HISTORY AND PHYSICAL [id number] SADIQ SALVADOR JEFFREY MD at 1823 CC: [id number] DICTATION DATE: 11/20/17840 IT TRAINING SPECIALIST: 11/20/17924 DEP CLI 11/20/17 [facility] [address] [place] [address]
--- NOTE | ~2017-11-20 | HEMODYNAMI ---
PATIENT:SADIQ SALVADOR MEDICAL RECORD: [id number] : 55 LOCATION:[facility] ADMISSION DATE: 11/20/17 Generatedon:11/20/201710:36 Patient name: SADIQ SALVADOR Patient #: [id number] SSN: : Date of study: 11/20/2017 Page: Of Hemodynamic Procedure Report Patient Data Patient Demographics Procedure consent was obtained First Name: SADIQ Gender: Male Last Name: MADELEINE : 1955 [facility] Initial: G Age: 61 year(s) Patient #: [id number] Race: Unknown Additional ID: [id number] Contact details [address]: [address] [place] [address] State: [place] City: [place] Zip code: [address] Past Medical History Allergies Allergen Reaction Date Comments Reported Other allergy 11/20/2017 PLAVIX Admission Admission Data Admission Date: 11/20/2017 Admission Time: 8:45 Admit Source: Other Procedure Procedure Types Cath Procedure PCI Procedure Coronary Atherectomy Atherectomy w/Stent Coronary Initial Procedure Description Procedure Date Procedure Date: 11/20/2017 Procedure Start Time: 10:18 Procedure End Time: 10:36 Procedure Staff Name Function Jaden Schaffer RT Tank Car Reconditioner Alexander Quiñonez RN Nurse Wilbur Garcia MD Performing Physician Danna Kong RT Monitor Natalio Miller RT Scrub Procedure Data Cath Procedure Fluoroscopy Diagnostic fluoroscopy Total fluoroscopy Time: 3.9 time: 3.9 min min Diagnostic fluoroscopy Total fluoroscopy dose: 275 dose: 275 mGy mGy Contrast Material Contrast Material Type Amount (ml) Isovue 300 50 Entry Location Entry Primary Successful Side Size Upsize Upsize Entry Closure Succes sful Closure Location (Fr) 1 (Fr) 2 (Fr) Remarks Device Remarks Femoral Right 6 Fr Exoseal artery Short Estimated blood loss: 10 ml Procedure Complications No complications Procedure Medications Medication Administration Route Dosage Oxygen etCO2 Nasal cannula 2 l/min Heparin Flush Bag added to field 2 bags (1000units/500ml NS) 0.9% NaCl I.V. 100 ml/hr Fentanyl I.V. 50 mcg Versed I.V. 1 mg Fentanyl I.V. 50 mcg Versed I.V. 1 mg Heparin Bolus I.V. 5000 units Fentanyl I.V. 50 mcg Hemodynamics Rest Heart Rate: 75 (bpm) Snapshots Pre Cath Intra NCS Post Cath Vital Signs Time Heart Resp SPO2 etCO2 NIBP (mmHg) Rhythm Pain Sedation Rate (ipm) (%) (mmHg) Status Level (bpm) 10:08:09 75 16 94 0 123/72(101) NSR 0 (11) 10(A) , No pain 10:12:52 77 17 93 0 116/70(100) NSR 0 (11) 10(A) , No pain 10:17:32 77 16 90 0 124/69(88) NSR 0 (11) 9(A) , No pain 10:22:13 73 17 94 33.7 120/66(92) NSR 0 (11) 9(A) , No pain 10:26:53 74 17 96 26.9 115/66(83) NSR 0 (11) 9(A) , No pain 10:31:34 76 17 96 32.9 116/65(89) NSR 0 (11) 9(A) , No pain 10:34:08 76 17 96 31.4 107/68(84) NSR 0 (11) 9(A) , No pain Medications Time Medication Route Dose Verified Delivered Reason Notes Effectiveness by by 10:10:11 Oxygen etCO2 2 Wilbur Munoz Per physician Nasal l/min Radha Quiñonez RN cannula 10:10:20 Heparin Flush added 2 Wilbur Munoz used for Bag to bags Radha Quiñonez sales promotion manager (1000units/500ml field NS) 10:10:29 0.9% NaCl I.V. 100 Wilbur Alexander Per physician ml/hr Radha Quiñonez RN 10:15:37 Fentanyl I.V. 50 Wilbur Alexander for sedation mcg Radha Quiñonez RN 10:15:44 Versed I.V. 1 mg Wilbur Alexander for sedation Radha Quiñonez RN 10:21:59 Fentanyl I.V. 50 Wilbur Munoz for sedation mcg Radha Quiñonez RN 10:22:02 Versed I.V. 1 mg Wilbur Alexander for sedation Radha Quiñonez RN 10:22:18 Heparin Bolus I.V. 5000 Wilbur Munoz for units Radha Quiñonez RN anticoagulation 10:28:45 Fentanyl I.V. 50 Wilbur Munoz for sedation [facility] [place] Radha Quiñonez speech and drama teacher Log Time Note 9:48:52 Patient allergic to Other allergyPLAVIX 9:50:22 Jaden Schaffer RT(R) sent for patient. Start room use. 10:03:28 Admit Source: Other 10:04:16 ACC Patient presents with Stable Angina CCS Anginal Class 2--Slight limitation of ordinary activity. 10:04:20 Diagnostic Cath status Elective 10:04:36 Time tracking: Regular hours (M-F 7:00 - 5:00) 10:04:47 Plan of Care:Hemodynamics will remain stable., Cardiac rhythm will remain stable., Comfort level will be maintained., Respiratory function will remain adequate., Patient/ family verbilizes understanding of procedure., Procedure tolerated without complication., Recovers from procedure without complications.. 10:04:53 Patient received from Pre/Post Procedure Room to CCL 1 Alert and oriented. Tansferred to table in Supine position. 10:04:54 Warm blankets applied, and luan hugger turned on for patient comfort. 10:04:55 Correct patient and procedure confirmed by team. 10:04:56 Signed procedure consent form obtained from patient. 10:04:57 ECG and BP/O2 sat monitors applied to patient. 10:07:18 Vital chart was started 10:07:19 Full Disclosure recording started 10:07:22 Rhythm: sinus rhythm 10:07:58 H&P Date Dictated: 11/20/2017 Within 30 days and on chart., H&P Addendum completed by physician on day of procedure. (MUST COMPLETE FOR ALL OUTPATIENTS). 10:07:59 Pre-procedure instructions explained to patient. 10:08:00 Pre-op teaching completed and patient verbalized understanding. 10:08:02 Family in patients room. 10:08:05 Patient NPO since Midnight. 10:08:09 Is the patient allergic to Iodine/contrast media? No. 10:08:25 PATIENT ALLERGIC TO PLAVIX 10:08:32 Is patient on blood thinner?Yes 10:08:35 ACC The patient was administered the following blood thiners within the last 24 hours: ACCEffient 10:09:26 Patient diabetic? Yes. 10:09:33 If diabetic: On Metformin? No 10:09:36 Previous problem with sedation/anesthesia? No ? 10:09:36 Snore? Yes 10:09:37 Sleep apnea? No 10:09:39 Deviated septum? No 10:09:39 Opens mouth fully? Yes 10:09:40 Sticks out tongue? Yes 10:09:42 Airway obstruction? No ? 10:09:43 Dentures? No ? 10:09:48 Pre procedure: right dorsailis pedis pulse 2+ Normal; easily identifiable; not easily obliterated 10:09:52 Patient pain scale 0/10 ?. 10:09:56 IV patent on arrival in left forearm with 0.9% NaCl at [facility]. 10:09:59 Lab results completed and on chart. 10:10:06 Right groin area was prepped with chlora-prep and draped in sterile fashion 10:10:07 Alarms reviewed by R. N. 10:10:08 Sharps counted by scrub and verified by R.N. 10:10:11 Oxygen 2 l/min etCO2 Nasal cannula was administered by Alexander Quiñonez RN; Per physician; 10:10:20 Heparin Flush Bag (1000units/500ml NS) 2 bags added to field was administered by Alexander Quiñonez RN; used for procedure; 10:10:21 Use device set CATH PACK 10:10:23 Use device set TAUTH PCI 10:10:24 ACIST Syringe (96678) opened to sterile field. 10:10:25 ACIST Hand Control (37559) opened to sterile field. 10:10:25 ACIST Manifold (65040) opened to sterile field. 10:10:26 Medline Cath Pack ([id number]) opened to sterile field. 10:10:27 Bag Decanter (2002S) opened to sterile field. 10:10:28 DIAGNOSTIC WIRE .035 260cm J wire (487586) opened to sterile field. 10:10:29 0.9% NaCl 100 ml/hr I.V. was administered by Alexander Quiñonez RN; Per physician; 10:10:29 INFLATOR Merit BasixCompak (MP9609) opened to sterile field. 10:10:31 CHOICE PT Extra Support 182cm wire ([id number]) opened to sterile field. 10:10:33 SHEATH Prelude 6Fr 0.035 (BDT-0O-48-035) opened to sterile field. 10:10:46 Tegaderm 4 x 4 (1626W) opened to sterile field. 10:10:54 Baseline sample Acquired. 10:15:29 Final Timeout: patient, procedure, and site verified with staff and physician. All members of the team are in agreement. 10:15:31 Right groin site verified by team. 10:15:35 Physical assessment completed. ASA score P 2 - A patient with mild systemic disease as per Wilbur Garcia MD. 10:15:37 Fentanyl 50 mcg I.V. was administered by Alexander Quiñonez RN; for sedation; 10:15:38 Sedation plan: IV Moderate Sedation Medication:Versed, Fentanyl 10:15:44 Versed 1 mg I.V. was administered by Alexander Quiñonez RN; for sedation; 10:17:59 Procedure started. 10:18:01 Zero performed for pressure channel P1 10:18:15 Local anesthetic to right femoral artery with Lidocaine 2% by Wilbur Garcia MD.INITIAL ACCESS ONLY 10:19:15 A 6 Fr Short sheath was inserted into the Right Femoral artery 10:19:28 6 Fr AR 2.0 SH guide catheter was inserted over the wire 10:20:49 CHOICE PT ES wire advanced. 10:21:59 Fentanyl 50 mcg I.V. was administered by Alexander Quiñonez RN; for sedation; 10:22:02 Versed 1 mg I.V. was administered by Alexander Quiñonez RN; for sedation; 10:22:07 LASER ELCA 1.4 Rx atherectomy catheter (023801) opened to sterile field. 10:22:18 Heparin Bolus 5000 units I.V. was administered by Alexander Quiñonez RN; for anticoagulation; 10:23:40 Laser pass to mRCA with Fluence of 60 and Rate of 40. 10:23:49 Laser pass to mRCA with Fluence of 60 and Rate of 40. 10:24:03 Laser pass to mRCA with Fluence of 60 and Rate of 40. 10:24:28 Laser pass to mRCA with Fluence of 60 and Rate of 40. 10:24:44 Laser pass to mRCA with Fluence of 60 and Rate of 40. 10:25:00 Laser pass to mRCA with Fluence of 60 and Rate of 40. 10:25:46 Laser pass to mRCA with Fluence of 60 and Rate of 40. 10:26:02 Laser catheter removed. 10:28:36 Place stent Inflation Number: 1 A LIZZY RX 3.5 x 18 stent ([id number]) was prepped and advanced across the Mid RCA. The stent was deployed at 21 KATIE for 0:08 (min:sec). 10::45 Fentanyl 50 mcg I.V. was administered by Alexander Quiñonez RN; for sedation; 10::54 Inflation number: 2 The stent balloon was then re-inflated across the Mid RCA to 17 KATIE for 0:05 (min:sec). 10::08 Stent catheter was removed intact over wire. 10:29:09 Wire removed. 10:29:09 Guide catheter removed. 10:29:18 Sheath removed intact; hemostasis achieved with Exoseal to the Right Femoral artery. 10:29:20 Procedure ended.(Physican Out) 10:29:27 Fluoroscopy time 03.90 minutes. 10:29:31 Flurop Dose total: 275 10::31 Fluoroscopy dose: 275 mGy 10:29:35 Contrast amount:Isovue 300 50ml. 10:29:36 Sharps counted by scrub and verified by R.N. 10:29:38 Insertion/operative site no bleeding no hematoma. 10:29:44 Post-op/insertion site Right Femoral artery dressed using a 4 x 4 and Tegaderm. 10:29:47 Post right femoral artery:stable, clean and dry 10:29:50 EXOSEAL 6Fr (EX600) opened to sterile field. 10:29:53 Post Procedure Pulses reassessed and unchanged 10:29:56 Post-procedure physical assessment completed. ASA score P 2 - A patient with mild systemic disease as per Wilbur Garcia MD. 10:29:58 Post procedure rhythm: unchanged. 10:30:01 Estimated blood loss: 10 ml 10:30:19 Laser total pulses delivered: 1400 10:30:32 Laser total treatment time: 0 minutes 35 seconds 10:33:21 Procedure type changed to Cath procedure, PCI procedure, Coronary Atherectomy, Atherectomy w/Stent Coronary Initial 10:33:24 Post procedure instruction explained to patient.Patient verbalizes understanding. 10:33:25 Patient needs reinforcement of post procedure teaching. 10:33:42 Procedure and supply charges have been captured, reviewed, submitted and are correct. 10:33:45 Procedure Complication : No complications 10:33:48 See physician's report for complete and final results. 10:34:30 GUIDE 6FR AR 2.0 SH catheter ([id number]) opened to sterile field. 10:36:00 Vital chart was stopped 10:36:01 Report given to Pre/Post Procedure Room. 10:36:05 Patient transfered to Pre/Post Procedure Room with Stretcher. 10:36:14 Procedure ended. 10:36:14 Full Disclosure recording stopped 10:36:17 End room use (Document Last) Intervention Summary Intervention Notes Time ActionType Lesion and Equipment Used Action# Pressure Duration Attributes 10:28:36 Place stent Mid RCA LIZZY RX 3.5 x 1 21 00:08 18 stent ([id number]) 10:28:54 Reinflate Mid RCA LIZZY RX 3.5 x 2 17 00:05 stent 18 stent balloon ([id number]) Device Usage Item Name Manufacture Quantity Catalog Number Hospital Part Current Minimal Lot# / Charge Number Stock Stock Serial# Code ACIST Syringe Acist 1 81431 233663 300592 710228 20 (80051) [employer] ACIST Hand Acist 1 81494 026532 842187 241931 5 Control (98570) [employer] ACIST Manifold Acist 1 78823 764002 658351 792110 5 (08189) [employer] Medline Cath Cardinal 1 [id number] 068093 14075 597706 5 [facility] ([id number]) Bag Decanter Microtek 1 2001S 495630 01803 219662 5 (2001S) Medical Inc. DIAGNOSTIC WIRE [place] [facility] 1 139245 265401 762718 789290 30 .035 260cm J wire (432173) INFLATOR Merit Merit 1 SA3153 964554 103852 520281 15 [employer] (VL1583) CHOICE PT Extra [place] 1 [id number] 563341 552654 736497 5 Support 182cm Scientific wire ([id number]) SHEATH Prelude Merit 1 [id number]-8D-20-35 949828 3689424 852478 5 6Fr 0.035 Medical (VPQ-9A-35-035) Tegaderm 4 x 4 3M 1 1626W 842276 305685 620720 5 (1626W) LASER ELCA 1.4 Elvin 1 114-009 062601 659552 998267 5 Rx atherectomy Healthcare catheter (291377) (070867) LIZZY RX 3.5 x Medtronic 1 [id number] 852732 1076243 416495 5 [id number] 18 stent ([id number]) EXOSEAL 6Fr Cardinal 1 EX600 381135 865207 184892 10 (EX600) Health GUIDE 6FR AR Medtronic 1 [id number] 941960 92874 734252 1 2.0 SH catheter ([id number]) Signature Audit [place] [facility] Time Signature Unsigned Intra-Procedure 11/20/2017 Danna 10:36:37 AM Counts RT(R) Signatures Monitor : Danna Signature : Counts RT Date : Time : [id number] [place] [address]
[~2017-11-20 08:45] MED LIST: ADALAT CC90 MG PO; ASPIRIN325 MG PO; BETAPACE 80 MG80 MG PO; CATAPRES0.1 MG; COZAAR100 MG PO; EFFIENT10 MG PO; FAMOTIDINE10 MG; GLIMEPIRIDE4 MG PO; GLUCOTROL 5 MG T5 MG; HCTZ25 MG PO; NORCO 7.5/325 T1 TA1 PO; PRAVACHOL40 MG PO; TENORMIN50 MG PO; XANAX1 MG PO
[2017-11-20 09:06] VITALS: BP 134/77; Ht 175.3 cm; Wt 109.1 kg
[2017-11-20 09:30] LABS: BASOPHILS 0.2 % (0-2); EOSINOPHILS 1.4 % (0-7); HEMATOCRIT 54.7 % (42.0-54.0); HEMOGLOBIN 19.5 g/dL (13.5-17.5); IMMATURE GRANULOCYTES 0.2 % (0-5); LYMPHOCYTES 16.9 % (15-50); MCH 31.1 pg (26.0-34.0); MCHC 35.6 g/dL (31.0-37.0); MCV 87.1 fL (80.0-100.0); MEAN PLATELET VOLUME 11.5 fL (7.4-10.4); MONOCYTES 12.4 % (2-11); NEUTROPHILS 68.9 % (40-80); RBC 6.28 10x6/uL (4.20-6.10); RDW 13.4 % (11.5-14.5); WBC 10.5 10x3/uL (4.8-10.8)
[2017-11-20 09:31] LABS: PLATELET COUNT 299 10x3/uL (130-400)
[2017-11-20 10:02] LABS: ANION GAP 10.6 mmol/L (8-16); CALCIUM 9.3 mg/dL (8.5-10.1); CARBON DIOXIDE 30.9 mmol/L (21.0-32.0); CREATININE - SERUM 1.1 mg/dL (0.6-1.3); POTASSIUM - SERUM 3.5 mmol/L (3.5-5.1)
== END 2017-11-20 14:51 ==
LOC: D.CATH 08:45
PROVIDERS: Internal Medicine Interventional Cardiology
DX: I25.110 Atherosclerotic heart disease of native coronary artery with unstable angina pectoris (principal)